=== PATIENT | female | born 1960 | race Caucasian/White ===

== ENCOUNTER → 2024-03-30 18:35 | Outpatient (REF) | payer MEDICARE, OTHER, SELFPAY | LOC: MRI 3T 18:35 | PROVIDERS: ATTENDING PHYSICIAN Internal Medicine; FAMILY PHYSICIAN Family Medicine | DX: G35 Multiple sclerosis (principal) | CPT/HCPCS: 70551; 72141 ==

== ENCOUNTER 2025-03-31 23:17 | Emergency (ER) | payer MEDICARE, OTHER, SELFPAY ==
[2025-03-31 23:39] VITALS: BP 150/87
[2025-04-01 00:10] LABS: Urine Albumin 3+ (Neg - Trace); Urine Bilirubin 3+ (Negative); Urine Character Clear (Clear); Urine Glucose Negative (Negative); Urine Ketone Negative (Negative); Urine Leukocyte Negative (Negative); Urine Nitrite Positive (Negative); Urine Occult Blood 4+ (Negative); Urine Urobilinogen 2+ (Neg - 1+)
[2025-04-01 00:11] LABS: Urine Color Orange
[2025-04-01 00:32] LABS: Urine Red Blood Cell 16-20 /HPF (0-2)
[2025-04-01 00:33] LABS: Urine White Cell None Seen /HPF (0-5)
[2025-04-01 00:35] LABS: Urine Bacteria Few (Negative)
[2025-04-01 00:59] LABS: % Basophils 0.9 % (0-2); % Eosinophils 3.2 % (0-6); % Immature Granulocytes 0.2 % (0-0.5); % Lymphocytes 29.8 % (20.5-51.1); % Monocytes 5.8 % (1.7-9.3); % Neutrophils 60.1 % (42.2-75.2); Absolute Basophils 0.1 10^3/uL (0-0.2); Absolute Eosinophils 0.3 10^3/uL (0-0.7); Absolute Lymphocytes 2.8 10^3/uL (1.2-3.4); Absolute Monocytes 0.5 10^3/uL (0.1-0.6); Absolute Neutrophils 5.6 10^3/uL (1.4-6.5); Hematocrit 32.8 % (37.0-47.0); Hemoglobin 10.5 g/dL (12.0-16.0); Mean Corpuscular Hgb 25.9 pg (27.0-31.0); Mean Platelet Volume 9.9 fL (7.4-10.4); Nucleated Red Blood Cells % 0 %; Platelet Count 292 10^3/uL (130-400); Red Blood Cell Count 4.05 10^6/uL (4.20-5.40); Red Cell Dist. Width 17.2 % (11.5-14.5); White Blood Cell Count 9.4 10^3/uL (4.8-10.8)
[2025-04-01 01:11] VITALS: BMI 39.6
[2025-04-01 01:22] LABS: Blood Urea Nitrogen 12 mg/dl (7-17); Calcium 10.2 mg/dl (8.4-10.2); Carbon Dioxide 25 mmol/L (22-30); Chloride 110 mmol/L (98-107); Estimated Creatinine Clearance 70 ml/min; Glucose 98 mg/dl (70-99); Potassium 3.9 mmol/L (3.5-5.1); Sodium 142 mmol/L (135-145); eGFR > 60.00
[2025-04-01] MEDS: TORADOL 15 MG IV (01:38)
[2025-04-01 02:00] VITALS: BP 139/87
--- NOTE | 2025-04-01 02:27 | ED.GENMED ---
History of Present Illness
General
Chief Complaint: Urinary Symptoms
Source: patient
Time Seen by Provider: 04/01/25 00:03
History of Present Illness
History of Present Illness:
65-year-old female who presents with 2 weeks of urinary frequency and urgency and lower abdominal discomfort. What bothers her the most right now is the pressure in her lower abdomen. Patient states she feels like she is not emptying her bladder
fully. She states she has had a little bit low back pain a little bit of nausea. She initially was placed on Bactrim because of her symptoms. She was unable to get a urine sample. She subsequently because of persistent symptoms was switched to
Levaquin and has only been on that for 3 days. Patient states she just cannot handle her symptoms anymore. Patient states is making her feel very anxious
Past History
Past History
ED Past Medical History: Asthma, Hypothyroidism and Other (Gastric bypass, MS)
ED Past Surgical History: Cholecystectomy and Gynecological (Hysterectomy)
Social History
Tobacco: Former smoker
Alcohol: Former
Drug: Former user
Personal:
Living: with family
Employment: Employed
Phy Exam
Physical Exam
Physical Exam:
CONSTITUTIONAL Patient alert and oriented to person, place and time. Well-appearing. Vital signs reviewed.
HEAD atraumatic, normocephalic.
EYES eyelids normal to inspection, Extraocular muscles intact, Conjunctiva normal, Sclera normal.
NECK normal range of motion, Trachea midline, no jugular venous distention.
RESPIRATORY CHEST No respiratory distress noted, Chest expansion equal, Bilateral breath sounds clear.
CARDIOVASCULAR regular rate and rhythm, Heart sounds normal.
ABDOMEN moderate suprapubic tenderness.
BACK normal inspection, no obvious deformities, no CVA tenderness
UPPER EXTREMITY range of motion normal, Motor strength normal, no cyanosis, no edema.
LOWER EXTREMITY range of motion normal, Motor strength normal, no cyanosis, no edema.
NEURO Speech normal, No focal motor deficits, Roosevelt coma scale 15, Memory normal, Cranial Nerves intact to screening exam.
SKIN skin warm, dry, and normal in color.
Sepsis
Sepsis Screening
Sepsis Assessment: Sepsis Ruled Out
Sepsis Screen
Sepsis Screen: Sepsis Ruled Out
Date: 04/01/25
Time: 04:40
Course
Orders/Labs/Results
Orders:
Orders
03/31/25 23:54
Urinalysis Reflex To Culture Urgent
Date Specimen was Collected: 03/31/25
Time Specimen was Collected: 23:46
Urine Microscopic Reflex Cult Urgent
Urine Culture Urgent
RON Source: U
Specimen Description:
Date Specimen was Collected: 03/31/25
Time Specimen was Collected: 23:46
04/01/25 00:14
Bladder Scan- Treatment ONCE
04/01/25 00:45
Basic Metabolic Panel Urgent
Complete Blood Count/With Diff Urgent
04/01/25 01:22
CT Abd/pelvis W Iv Cont Urgent
Comment:
Reason For Exam: lower abd pain
Ketorolac [Toradol] 15 mg IV NOW STA
04/01/25 03:17
HYDROmorphone [Dilaudid] 0.5 mg IV NOW STA
04/01/25 04:40
Oxybutynin Chloride [Ditropan] 5 mg PO NOW STA
Abnormal Lab Results
03/31/25 04/01/25
23:54 00:45
RBC 4.05 L 10^6/uL
(4.20-5.40)
Hgb 10.5 L g/dL
(12.0-16.0)
Hct 32.8 L %
(37.0-47.0)
MCH 25.9 L pg
(27.0-31.0)
MCHC 32.0 L g/dL
(33.0-37.0)
RDW 17.2 H %
(11.5-14.5)
Chloride 110 H mmol/L
(98-107)
Ur Occult Blood Reflex 4+ A
(Negative)
Urine Nitrite (Reflex) Positive A
(Negative)
Urine Bilirubin 3+ A
(Negative)
Urine Urobilinogen 2+ A
(Neg - 1+)
Urine RBC 16-20 A /HPF
(0-2)
Urine Bacteria (Reflex) Few A
(Negative)
Urine Albumin (Reflex) 3+ A
(Neg - Trace)
04/01/25 00:45
04/01/25 00:45
Vital Signs
Initial and Last Documented VS:
Initial Vital Signs
Temp Pulse Resp BP Pulse Ox
98.3 F 92 22 150/87 98
03/31/25 23:39 03/31/25 23:39 03/31/25 23:39 03/31/25 23:39 03/31/25 23:39
Last Documented Vital Signs
Temp Pulse Resp BP Pulse Ox
98.3 F 77 20 146/73 100
03/31/25 23:39 04/01/25 02:00 04/01/25 02:00 04/01/25 03:12 04/01/25 03:15
MDM/Problems Addressed
Differential Diagnosis Includes:
Diverticulitis, cystitis, pyelonephritis, interstitial cystitis
MDM/Problems Addressed:
Pelvic pain, bladder spasm, interstitial cystitis
*Pulse Oximetry
Patient hypoxic: no
*Critical Care Note
Total Time (30-74mins, 75-104mins- exclusive of procedures): Not Applicable
Data Reviewed
Source: patient
Prescriptions/Medications Considered But Not Given:
Consider antibiotics patient already on Levaquin and urine does not suggest UTI
Patient Management
Escalation/DeEscalation of care consider admission/obs:
Certainly possible that hearing is partially treated. She also has history of interstitial cystitis and chronic bladder pain syndrome. Will initiate Ditropan but refer to the patient's urologist. Patient agrees that she will follow-up with her
urologist. She does feel little better on reevaluation
ED Attending Note
-
Portions of this chart may have been created with voice recognition software.� Occasional wrong word or��sound alike� substitutions may have occurred due to the inherent limitations of voice recognition software.
Discharge Plan
Departure
Patient Disposition: Home (Routine Discharge)
Date of Disposition: 04/01/25
Time of Disposition: 04:41
Patient with high blood pressure during this ER visit?: Yes
Discharge Problem:
Pelvic pain, Interstitial cystitis
Instructions: Bladder pain syndrome (interstitial cystitis), BLOOD PRESSURE
Prescriptions:
New
oxybutynin chloride 5 mg tablet
5 mg PO TID PRN (Reason: bladder spasms) Qty: 20 0RF
No Action
pantoprazole [Protonix] 20 MG tablet,delayed release (DR/EC)
40 mg PO DAILY
levothyroxine 75 MCG tablet
75 mcg PO DAILY
paroxetine HCl [Paxil] 20 MG tablet
30 mg PO DAILY
buspirone [BuSpar] 30 MG tablet
30 mg PO DAILY
cannabidiol [Epidiolex] 1 UNIT solution
1 unit PO PRN PRN (Reason: knee pain)
Patient Comments:
Remedi 1:1
Referrals:
Bradly Tracy Jr., DO [Family Provider] -
Activity Restrictions/Additional Instructions:
Please see your urologist in the next 3 days for follow-up and reevaluation. Return immediately for fevers, vomiting, worsening symptoms or any other concerns. Finish out your antibiotics as prescribed by your doctor.
Interventions
Interventions:
*Risk Screen - Suicide Last Done: 03/31/25 23:39
*General Assessment Last Done: 04/01/25 01:47
*Neglect/Abuse Screening Last Done: 04/01/25 01:47
*ED- Fall Risk Assessment Last Done: 04/01/25 01:47
*ED COVID-19 Vaccine History Last Done: 04/01/25 01:47
ED-Female Genitourinary Assessment Last Done: 04/01/25 01:26
Discharge Date and Time
Print Language: ALBANIAN
[2025-04-01 03:12] VITALS: BP 146/73
[2025-04-01] MEDS: DILAUDID 0.5 MG IV (03:21)
[2025-04-01 04:00] VITALS: BP 121/69
[2025-04-01] MEDS: DITROPAN 5 MG PO (05:08)
[2025-04-01 06:00] VITALS: BP 134/70
--- NOTE | 2025-04-01 07:48 | EDRN ---
Reviewed discharge instructions with patient. Verbalized understanding. Ambulated with steady gait to the lobby.
[2025-04-01 07:53] VITALS: BP 144/91
== END 2025-04-01 07:45 | disposition home or self-care (01) ==
LOC: EMR 23:17
PROVIDERS: EMERGENCY PHYSICIAN Emergency Medicine; FAMILY PHYSICIAN Family Medicine
DX: N30.10 Interstitial cystitis (chronic) without hematuria (principal); R10.2 Pelvic and perineal pain; E03.9 Hypothyroidism, unspecified; J45.909 Unspecified asthma, uncomplicated; Z90.49 Acquired absence of other specified parts of digestive tract; Z90.710 Acquired absence of both cervix and uterus; Z87.891 Personal history of nicotine dependence; Z98.84 Bariatric surgery status
CPT/HCPCS: 96374; 96375; 99284; 74177; 80048; 81003; 81015; 85025; 87086; Q9967

== ENCOUNTER 2025-09-22 23:13 | Observation (INO) | payer MEDICARE, OTHER, SELFPAY ==
[2025-09-22 18:02] VITALS: BP 163/90
[2025-09-22 18:28] LABS: Hematocrit 33.4 % (37.0-47.0); Hemoglobin 10.7 g/dL (12.0-16.0); Mean Corp Hgb Conc. 32.0 g/dL (33.0-37.0); Mean Corpuscular Volume 78.6 fL (81.0-99.0); Nucleated Red Blood Cells % 0 %; Platelet Count 324 10^3/uL (130-400); Red Cell Dist. Width 17.8 % (11.5-14.5)
[2025-09-22 18:40] LABS: ALT (SGPT) 13 U/L (0-35); AST (SGOT) 19 U/L (14-36); Albumin 4.9 g/dl (3.5-5.0); Alkaline Phosphatase 71 U/L (38-126); Blood Urea Nitrogen 7 mg/dl (7-17); Calcium 10.4 mg/dl (8.4-10.2); Carbon Dioxide 24 mmol/L (22-30); Chloride 106 mmol/L (98-107); Glucose 116 mg/dl (70-99); Lipase 411 U/L (23-300); Potassium 4.3 mmol/L (3.5-5.1); Sodium 137 mmol/L (135-145); Total Protein 8.3 g/dl (6.3-8.2); eGFR > 60.00
[2025-09-22 19:19] VITALS: BP 155/79
[2025-09-22 19:21] VITALS: BMI 38.5
[2025-09-22] MEDS: REGLAN 10 MG IV (19:38)
--- NOTE | 2025-09-22 19:38 | ED.GENMED ---
History of Present Illness
General
Chief Complaint: Abdominal Symptoms
Time Seen by Provider: 09/22/25 18:48
History of Present Illness
History of Present Illness:
65-year-old female with history of MS, bipolar disorder, GERD, history of gastric bypass presenting for nausea, vomiting. Patient reports symptoms started today. Reports that she has had this issue in the past. She notes that she will sneeze,
followed by a burp, and then intractable nausea and vomiting. She gets the symptoms every 2 to 3 weeks. She recently saw a GI doctor, had an endoscopy yesterday and was reportedly normal. She also notes that she has had CT scans in the past,
unremarkable. Does report history of elevated pancreas enzymes, of unclear etiology. Reports surgical history of gastric bypass, cholecystectomy. Denies fever, chest pain, difficulty breathing. Denies associated abdominal pain. She has been
unable to tolerate any p.o. today. Denies additional acute medical complaints
Past History
Past History
ED Past Medical History: Asthma, Hypothyroidism and Other (Gastric bypass, MS)
ED Past Surgical History: Cholecystectomy and Gynecological (Hysterectomy)
Social History
Tobacco: Former smoker
Alcohol: Former
Drug: Former user
Personal:
Living: with family
Employment: Employed
Phy Exam
Physical Exam
Physical Exam:
General: Well-appearing, no clinical signs of dehydration, nontoxic and in no acute distress
HEENT: protecting airway
Neck: appears supple
CV: Normal heart rate, regular rhythm, no evidence of cyanosis
Resp: No accessory muscle use, no increased work of breathing, lungs clear to auscultation bilaterally
Abd: Soft and non-distended, no tenderness to palpation
Extremities: No deformities, no swelling
Neuro: alert, no focal neurologic deficit
: deferred
Rectal: deferred
Psych: Normal affect
Skin: Intact
Course
Orders/Labs/Results
Orders:
Orders
09/22/25 18:06
Electrocardiogram (*1) Urgent
Reason for Study: Other
Other Reason for Exam: nausea
09/22/25 18:07
EKG- Treatment ONCE
09/22/25 18:13
Complete Blood Count/With Diff Urgent
Comprehensive Metabolic Panel Urgent
Lipase Urgent
09/22/25 19:17
0.9% Sodium Chloride 1000 ml [Nss] 1,000 ml IV BOLUS
Diphenhydramine [Benadryl] 12.5 mg IV NOW STA
Metoclopramide [Reglan] 10 mg IV NOW STA
09/22/25 20:59
0.9% Sodium Chloride 1000 ml [Nss] 1,000 ml IV BOLUS
Metoclopramide [Reglan] 5 mg IV NOW STA
Abnormal Lab Results
09/22/25
18:13
Hgb 10.7 L g/dL
(12.0-16.0)
Hct 33.4 L %
(37.0-47.0)
MCV 78.6 L fL
(81.0-99.0)
MCH 25.2 L pg
(27.0-31.0)
MCHC 32.0 L g/dL
(33.0-37.0)
RDW 17.8 H %
(11.5-14.5)
Glucose 116 H mg/dl
(70-99)
Calcium 10.4 H mg/dl
(8.4-10.2)
Total Protein 8.3 H g/dl
(6.3-8.2)
Lipase 411 H U/L
(23-300)
09/22/25 18:13
09/22/25 18:13
Vital Signs
Initial and Last Documented VS:
Initial Vital Signs
Temp Pulse Resp BP Pulse Ox
98.0 F 77 18 163/90 99
09/22/25 18:02 09/22/25 18:02 09/22/25 18:02 09/22/25 18:02 09/22/25 18:02
Last Documented Vital Signs
Temp Pulse Resp BP Pulse Ox
98.0 F 64 19 134/82 98
09/22/25 18:02 09/22/25 22:00 09/22/25 22:00 09/22/25 21:32 09/22/25 21:00
MDM/Problems Addressed
MDM/Problems Addressed:
65-year-old female with past medical history of MS, GERD, bipolar disorder, gastric bypass presenting for intractable nausea and vomiting. Vital signs on arrival are significant for mild hypertension.
On exam, patient is in no acute distress, however is having some retching and some clear vomitus. Patient is afebrile, nontoxic. Unremarkable abdominal exam, no focal reproducible tenderness with lower suspicion for serious intra-abdominal process
or infection. Patient notes CT imaging in the past without clear source, and endoscopy yesterday that was unremarkable. Patient notes that the symptoms typically start after sneezing, and then belching, which could possibly indicate more of a
nervous system irritation, such as phrenic nerve irritation. Screening laboratory analysis obtained, unremarkable. Mild elevation of lipase, which patient reports is chronic. No present indication for advanced imaging. Will treat with IV fluids
and antiemetics and reassess for improvement.
21:00-patient reporting symptom improvement. She notes that she still feels a little nauseous so will redose medication and administer additional liter of fluids with plan for p.o. challenge
22:35 - Patient again vomiting after second dose of antiemetic. Unable to tolerate p.o. at this time. At this time we will admit for intractable nausea and vomiting and continued therapeutic management
*Pulse Oximetry
SaO2: 99
Oxygen Mode of Delivery: Room air
Patient hypoxic: no
*Critical Care Note
Total Time (30-74mins, 75-104mins- exclusive of procedures): Not Applicable
ED Attending Note
-
Portions of this chart may have been created with voice recognition software.� Occasional wrong word or��sound alike� substitutions may have occurred due to the inherent limitations of voice recognition software.
Discharge Plan
Departure
Prescriptions:
No Action
pantoprazole [Protonix] 20 MG tablet,delayed release (DR/EC)
40 mg PO DAILY
levothyroxine 75 MCG tablet
75 mcg PO DAILY
paroxetine HCl [Paxil] 20 MG tablet
30 mg PO DAILY
buspirone [BuSpar] 30 MG tablet
30 mg PO DAILY
cannabidiol [Epidiolex] 1 UNIT solution
1 unit PO PRN PRN (Reason: knee pain)
Patient Comments:
Remedi 1:1
oxybutynin chloride 5 mg tablet
5 mg PO TID PRN (Reason: bladder spasms) Qty: 20 0RF
Referrals:
Bradly Tracy Jr., DO [Family Provider, Family Practice]
Interventions
Interventions:
*Risk Screen - Suicide Last Done: 09/22/25 18:02
*General Assessment Last Done: 09/22/25 18:02
*Neglect/Abuse Screening Last Done: 09/22/25 18:02
*ED- Fall Risk Assessment Last Done: 09/22/25 19:21
*ED COVID-19 Vaccine History Last Done: 09/22/25 18:02
*ED Influenza Vaccine History Last Done: 09/22/25 18:02
PM-Tkfvzi-Pcnddeaqyf Assessment Last Done: 09/22/25 20:00
Discharge Date and Time
Print Language: MALAYSIAN
[2025-09-22] MEDS: BENADRYL 12.5 MG IV (19:39)
[2025-09-22] MEDS: NSS 1000 IV ×2 (19:39→21:26)
[2025-09-22] MEDS: REGLAN 5 MG IV (21:27)
[2025-09-22 21:32] VITALS: BP 134/82
--- NOTE | 2025-09-22 23:17 | HPS.HSE ---
Family Physician
-
Family Physician: Bradly Tracy
Chief Complaint
-
intractable vomiting
History of Present Illness
65-year-old female past medical history of elevated pancreatic enzymes relapsing remitting multiple sclerosis on ampyra, frequent multiple sclerosis hugs/muscle spasm, gastric bypass, GERD, bipolar disorder, hypothyroidism presenting with
intractable nausea and vomiting. Symptoms started today. For the past year she has been having reoccurrence of a sneeze followed by burping followed by intractable nausea and vomiting associated with chills. She usually suffers at home for a few
days without sleep until the symptoms eventually resolved. This occurs every 2 to 3 weeks without failure. She denies any painful hiccups or chest pain or abdominal pain. She has loose stools ongoing which is usually worse during these episodes
of pain. Denies any constipation. Denies any blood in the vomit or stool.
She takes ibuprofen very rarely. Usually takes Tylenol. She cannot swallow well because she does not have dentures but denies any sensation of food getting stuck in her esophagus. She takes Protonix 40 mg once a day.
She finally saw a GI doctor Dr. Ramirez at [place] who recommended EGD which she had yesterday which was reportedly unremarkable. Biopsies were taken. She has also had prior CT scans which have been unremarkable. Denies any fevers or chest pain or
shortness of breath.
She uses medical marijuana occasionally. She is a former smoker. She is a former alcohol user.
Medical History
Past Medical History
Past Medical History: Reports Other (elevated pancreatic enzymes relapsing remitting multiple sclerosis on ampyra, frequent multiple sclerosis hugs/muscle spasm, gastric bypass, GERD, bipolar disorder, hypothyroidism)
Past Surgical History: Reports Other (Gastric bypass, cholecystectomy and Gynecological (Hysterectomy), ankle surgeries)
Social History
Tobacco: Former Smoker
Alcohol: Former
Drug: Marijuana
Family History
Family History: Not pertinent
Allergies / Home Medications
Allergies reflects when Allergies were last updated in [facility].
Home Medications with original date entered in [facility]
Allergy/Medication List:
Allergies
Allergy/AdvReac Type Severity Reaction Status Date / Time
aspirin Allergy Unknown Verified 09/22/25 18:05
sulfamethoxazole (From Allergy Vomiting Verified 09/22/25 18:05
Bactrim)
trimethoprim (From Bactrim) Allergy Vomiting Verified 09/22/25 18:05
Home Medications
buspirone 30 mg tablet (BuSpar) 30 mg PO DAILY Bipolar 12/01/18
levothyroxine 75 mcg tablet 75 mcg PO DAILY Thyroid 12/01/18
pantoprazole 20 mg tablet,delayed release (Protonix) 40 mg PO DAILY Gastrointestinal issue 12/01/18
paroxetine HCl 20 mg tablet (Paxil) 30 mg PO DAILY 12/01/18
cannabidiol 100 mg/mL oral solution (Epidiolex) 1 unit PO PRN PRN knee pain 07/26/20
oxybutynin chloride 5 mg tablet 5 mg PO TID PRN bladder spasms #20 tabs 04/01/25
Review of Systems
-
History Source: Patient
A 12 point ROS was completed and negative except as noted: Yes
Constitutional: Reports No Symptoms
EENT: Reports No Symptoms
Respiratory: Reports No Symptoms
Cardiac: Reports No Symptoms
Abdomen/GI: Reports No Symptoms
: Reports No Symptoms
Musculoskeletal: Reports No Symptoms
Skin: Reports No Symptoms
Neurological: Reports No Symptoms
Endocrine: Reports No Symptoms
Hematologic/Lymphatic: Reports No Symptoms
Psych: Reports No Symptoms
Physical Exam
Vital Signs
Vital Signs
Temp Pulse Resp BP Pulse Ox
98.0 F 64 19 134/82 98
09/22/25 18:02 09/22/25 22:00 09/22/25 22:00 09/22/25 21:32 09/22/25 21:00
Physical Exam
General: Well Developed, Well Nourished and No Apparent Distress
HEENT: NormoCephalic, Moist mucous membranes and Atraumatic
Respiratory: Clear
Cardiac: S1/S2 and Regular Rhythm; No Murmur or Rub
GI: Soft, Non Tender, Non Distended and Normal Bowel Sounds; No Organomegaly
Rectal: Deferred by Provider
Musculoskeletal: No Clubbing, No Cyanosis and No Edema
Skin: No Rash
Neuro: Nonfocal/grossly intact
Laboratory Results
-
09/22/25 18:13
09/22/25 18:13
Laboratory Results
Total Bilirubin 0.5 mg/dl (0.2-1.3) 09/22/25 18:13
AST 19 U/L (14-36) 09/22/25 18:13
ALT 13 U/L (0-35) 09/22/25 18:13
Alkaline Phosphatase 71 U/L (38-126) 09/22/25 18:13
Lipase 411 U/L (23-300) H 09/22/25 18:13
Data Reviewed
-
Lab Data: Labs Reviewed by me
Old Records: Reviewed
Impression/Plan
-
IMPRESSION:
PLAN:
# Episodic intractable nausea/vomiting likely gastroparesis secondary to multiple sclerosis/cyclical vomiting syndrome
- Had EGD yesterday which was reportedly unremarkable
- Lipase 411
- Given IV fluids, Benadryl and Reglan with some improvement
-Continue Reglan as needed, Zofran, Tigan as needed
-EKG shows QTc 428
- Protonix 40 IV daily
- N.p.o.
-IV fluids
- Outpatient follow-up for GI for gastric apnea study
- Recommend marijuana discontinuation if possible
-GI if no improvement with these measures
# History of elevated pancreatic enzyme unclear etiology
- Lipase 400
GERD
- Continue Protonix
History of gastric bypass
Chronic anemia
- Hemoglobin stable 10.7
Relapsing remitting multiple sclerosis
- On ampyra
History of muscle spasms secondary to multiple sclerosis/multiple sclerosis hugs
Bipolar disorder
- Continue BuSpar, paroxetine
Hypothyroidism
-Continue levothyroxine
Full code
DVT prophylaxis�heparin
N.p.o.
[2025-09-22] MEDS: TIGAN 200 MG IM (23:34)
[2025-09-22 23:39] VITALS: BP 147/96
[2025-09-23 01:30] VITALS: BP 134/72
--- NOTE | 2025-09-23 02:00 | PTCARENOTE ---
pt transported from ED to 3W via stretcher. Pt independent from stretcher to bed. Vital signs WNL, placed on TELE monitor, oriented to room and call locke within reach.
[2025-09-23] MEDS: ZOFRAN 4 MG IV ×2 (02:33→08:51)
[2025-09-23] MEDS: NSS 1000 IV (02:34)
[2025-09-23] MEDS: TIGAN 200 MG IM (05:37)
[2025-09-23 06:30] LABS: Hematocrit 29.8 % (37.0-47.0); Hemoglobin 9.2 g/dL (12.0-16.0); Mean Corp Hgb Conc. 30.9 g/dL (33.0-37.0); Mean Corpuscular Volume 81.0 fL (81.0-99.0); Nucleated Red Blood Cells % 0 %; Platelet Count 284 10^3/uL (130-400); Red Cell Dist. Width 17.6 % (11.5-14.5)
[2025-09-23 06:53] LABS: ALT (SGPT) 11 U/L (0-35); AST (SGOT) 18 U/L (14-36); Albumin 4.2 g/dl (3.5-5.0); Alkaline Phosphatase 59 U/L (38-126); Blood Urea Nitrogen 6 mg/dl (7-17); Calcium 9.4 mg/dl (8.4-10.2); Carbon Dioxide 24 mmol/L (22-30); Chloride 110 mmol/L (98-107); Estimated Creatinine Clearance 78 ml/min; Glucose 122 mg/dl (70-99); Potassium 4.3 mmol/L (3.5-5.1); Sodium 141 mmol/L (135-145); Total Protein 6.8 g/dl (6.3-8.2); eGFR > 60.00
[2025-09-23 07:00] VITALS: BP 127/75
[2025-09-23] MEDS: HEPARIN 5000 UNITS SC (08:17)
[2025-09-23] MEDS: NSS (PRESERVATIVE FREE) 10 ML IV (08:21)
[2025-09-23] MEDS: PROTONIX IV 40 MG IV (08:21)
[2025-09-23 11:00] VITALS: BP 158/82
--- NOTE | 2025-09-23 12:49 | W.PN.HOSP.TC ---
Addendum entered and electronically signed by Jomar Thomas MD 09/24/25 15:42:
[id number]
UDS - positive for THC and methamphetamines
Original Note:
Today's Communication/Plan
-
Stop cannabis, oxybutynin etc.
PCP, psychiatry, gastroenterology, neurology outpatient
Assessment / Plan
Assessment / Plan
Physical Exam
General: Well Developed, Well Nourished and No Apparent Distress
HEENT: NormoCephalic, Moist mucous membranes and Atraumatic
Respiratory: Clear
Cardiac: S1/S2 and Regular Rhythm; No Murmur or Rub
GI: Soft, Non Tender, Non Distended and Normal Bowel Sounds; No Organomegaly
Rectal: Deferred by Provider
Musculoskeletal: No Clubbing, No Cyanosis and No Edema
Skin: No Rash
Neuro: Nonfocal/grossly intact
# Episodic intractable nausea/vomiting likely cyclical vomiting syndrome
- Had EGD day prior which was reportedly unremarkable
- Lipase 411
- Given IV fluids, Benadryl and Reglan with improvement
-ADAT - patient wants to leave - feels better; abd non distended, non tender
-KUB with no evidence of clear obstruction
-I believe may be related to cannabis, drug use; stopping oxybutynin for possible anticholinergic effects;
-no urinary symptoms
-f/u GI, psych and Psych outpt
# History of elevated pancreatic enzyme unclear etiology
- Lipase 400
-no abd pain
-s/p fluids
GERD
- Continue Protonix
History of gastric bypass
Chronic anemia
- Hemoglobin stable 10.7
Relapsing remitting multiple sclerosis
- On ampyra
History of muscle spasms secondary to multiple sclerosis/multiple sclerosis hugs
Bipolar disorder
- Continue BuSpar, paroxetine
Hypothyroidism
-Continue levothyroxine
Full code
DVT prophylaxis�heparin
Anticipated Discharge: Within 24 hours
Subjective/Interval History
-
Date of Service: September 23, 2025
feels better, wants to try diet; belly non distended non tender
Objective Data
-
Labs:
Laboratory Results
09/23/25
06:02
WBC 5.1
Hgb 9.2 L
Hct 29.8 L
Plt Count 284
Sodium 141
Potassium 4.3
Chloride 110 H
Carbon Dioxide 24
BUN 6 L
Creatinine 0.8
Glucose 122 H
Calcium 9.4
Total Bilirubin 0.4
AST 18
ALT 11
Alkaline Phosphatase 59
Vital Signs:
Vital Signs
Temp Pulse Resp BP Pulse Ox
98.8 F 77 18 158/82 98
09/23/25 11:00 09/23/25 11:00 09/23/25 11:00 09/23/25 11:00 09/23/25 11:00
I&O
09/22/25 09/23/25 09/24/25
06:59 06:59 06:59
Intake Total 240 / 240
Balance 240 / 240
Review of Systems
-
History Source: Patient
All other systems: Not reviewed unless documented
Data Reviewed
-
Diagnostic Radiology: Report Reviewed by me
Labs: Labs Reviewed by me
[2025-09-23] MEDS: ANTIVERT 25 MG PO (13:02)
[2025-09-23 15:00] VITALS: BP 146/74
== END 2025-09-23 16:48 | disposition home or self-care (01) ==
LOC: 3 WEST ACU 23:13
PROVIDERS: Emergency Medicine; ADMITTING PHYSICIAN Hospitalist; ATTENDING PHYSICIAN Internal Medicine; EMERGENCY PHYSICIAN Student in an Organized Health Care Education/Training Program; FAMILY PHYSICIAN Family Medicine
DX: R11.2 Nausea with vomiting, unspecified (principal); R10.9 Unspecified abdominal pain; G35.A Relapsing-remitting multiple sclerosis; F31.9 Bipolar disorder, unspecified; K21.9 Gastro-esophageal reflux disease without esophagitis; E03.9 Hypothyroidism, unspecified; D64.9 Anemia, unspecified; R16.0 Hepatomegaly, not elsewhere classified; R94.31 Abnormal electrocardiogram [ECG] [EKG]; I10 Essential (primary) hypertension; R74.8 Abnormal levels of other serum enzymes; J45.909 Unspecified asthma, uncomplicated; Z98.84 Bariatric surgery status; Z90.49 Acquired absence of other specified parts of digestive tract; Z79.890 Hormone replacement therapy; Z79.899 Other long term (current) drug therapy; Z88.6 Allergy status to analgesic agent; Z88.1 Allergy status to other antibiotic agents; Z88.2 Allergy status to sulfonamides; Z87.891 Personal history of nicotine dependence; Z95.828 Presence of other vascular implants and grafts; Z90.710 Acquired absence of both cervix and uterus
CPT/HCPCS: 70450; 74022; 80053; 80306; 80307; 83690; 84443; 85025; 93005; 96361; 96374; 96375; 96376; 99285; G0378